=== PATIENT | female | born 1940 | race Two or more races ===

== ENCOUNTER 2021-01-12 08:04 | Outpatient (CLI) | payer OTHER | END 2021-01-12 08:12 | disposition home or self-care (01) | LOC: TOM 08:04 | PROVIDERS: ATTEND Specialist | DX: K57.92 Diverticulitis of intestine, part unspecified, without perforation or abscess without bleeding (principal); Q51.818 Other congenital malformations of uterus ==

== ENCOUNTER 2021-02-03 14:14 | Outpatient (CLI) | payer OTHER | END 2021-02-03 14:35 | disposition home or self-care (01) | LOC: SONOGRAMA 14:14 | PROVIDERS: ATTEND Surgery | DX: Q51.818 Other congenital malformations of uterus (principal); R19.4 Change in bowel habit; R63.4 Abnormal weight loss; D37.4 Neoplasm of uncertain behavior of colon ==

== ENCOUNTER 2021-02-07 06:00 | Day surgery (SDC) | payer OTHER | END 2021-02-07 13:00 | disposition home or self-care (01) | LOC: AMB-ENDOS 06:00 | PROVIDERS: ATTEND Surgery | DX: D12.0 Benign neoplasm of cecum (principal); D12.5 Benign neoplasm of sigmoid colon; Z20.822 Contact with and (suspected) exposure to COVID-19 ==

== ENCOUNTER 2021-03-02 09:50 | Outpatient (CLI) | payer OTHER | END 2021-03-02 09:59 | disposition home or self-care (01) | LOC: RAD 09:50 | PROVIDERS: ATTEND Surgery | DX: R19.4 Change in bowel habit (principal); R63.4 Abnormal weight loss; D37.4 Neoplasm of uncertain behavior of colon; R07.89 Other chest pain ==

== ENCOUNTER 2021-03-06 09:00 | Inpatient (IN) | payer OTHER ==
[~2021-03-06] VITALS: Ht 152.4 cm; Wt 38.1 kg
[2021-03-06] MEDS ORDERED: PROBIOTIC1 EAC2 PO (11:30)
[2021-03-06] MEDS ORDERED: LEVO-T25 MCG PO (11:30)
[2021-03-06] MEDS ORDERED: ACID REDUCER20 M1 PO (11:31)
[2021-03-06] MEDS ORDERED: B12 ACTIVE1000 MCG PO (11:31)
[2021-03-06] MEDS ORDERED: MULTI-VITAMIN1 EACH PO (11:31)
[2021-03-10] MEDS ORDERED: VITAMIN D3125 MC1 (08:24)
[2021-03-10] MEDS ORDERED: STRESS B-COMPL1 EACH (08:24)
[2021-03-10] MEDS ORDERED: PAIN RELIEVER500 M5 (08:24)
[2021-03-10] MEDS ORDERED: REFRESH OPTIVE10 ML (08:24)
[2021-03-14] MEDS ORDERED: ULTRACET PO (08:26)
[2021-03-14] MEDS ORDERED: HYOSCYAMINE0.125 M1 SL (08:26)
[2021-03-14] MEDS ORDERED: PROBIOTIC1 EAC2 PO (08:26)
== END 2021-03-14 10:11 | disposition home or self-care (01) | DRG 331 ==
LOC: ADM 09:00 → EDSTATUS 03-09 09:00 → CIR.AMB 03-09 09:00 → SURH 03-09 09:00 → O/R 03-09 09:54 → SURH 03-09 11:00 → SURG 03-09 17:12
PROVIDERS: ADMIT Surgery; ATTEND Surgery
PROC: 07BC4ZX Excision of Pelvis Lymphatic, Percutaneous Endoscopic Approach, Diagnostic (ICD-10-PCS; 2021-03-09)
PROC: 0DTF4ZZ Resection of Right Large Intestine, Percutaneous Endoscopic Approach (ICD-10-PCS; principal; 2021-03-09 11:00)
DX: D12.2 Benign neoplasm of ascending colon (principal); E83.39 Other disorders of phosphorus metabolism; M81.0 Age-related osteoporosis without current pathological fracture

== ENCOUNTER → 2021-07-20 08:55 | Outpatient (CLI) | payer OTHER ==
[~2021-07-20 08:55] MED LIST: ACID REDUCER20 M1 PO; B12 ACTIVE1000 MCG PO; HYOSCYAMINE0.125 M1 SL; LEVO-T25 MCG PO; MULTI-VITAMIN1 EACH PO; PAIN RELIEVER500 M5; PROBIOTIC1 EAC2 PO; REFRESH OPTIVE10 ML; STRESS B-COMPL1 EACH; ULTRACET PO; VITAMIN D3125 MC1
== END | disposition home or self-care (01) ==
LOC: MAMO-SONO 08:45
PROVIDERS: ATTEND Internal Medicine Geriatric Medicine
DX: R92.1 Mammographic calcification found on diagnostic imaging of breast (principal); N64.4 Mastodynia; N60.11 Diffuse cystic mastopathy of right breast; N60.12 Diffuse cystic mastopathy of left breast; Z12.31 Encounter for screening mammogram for malignant neoplasm of breast

== ENCOUNTER 2021-07-20 09:16 | Outpatient (CLI) | payer OTHER | END 2021-07-20 15:00 | disposition home or self-care (01) | LOC: LAB 09:16 | PROVIDERS: ATTEND Internal Medicine Geriatric Medicine | DX: E03.8 Other specified hypothyroidism (principal); D50.8 Other iron deficiency anemias; E78.2 Mixed hyperlipidemia; I11.9 Hypertensive heart disease without heart failure; E56.8 Deficiency of other vitamins; N39.0 Urinary tract infection, site not specified; Z12.11 Encounter for screening for malignant neoplasm of colon; R19.5 Other fecal abnormalities; E55.9 Vitamin D deficiency, unspecified; N19 Unspecified kidney failure; E11.9 Type 2 diabetes mellitus without complications; R80.8 Other proteinuria; I10 Essential (primary) hypertension ==

== ENCOUNTER 2021-08-03 08:08 | Outpatient (CLI) | payer OTHER | END 2021-08-03 08:10 | disposition home or self-care (01) | LOC: PPH VACUNA 08:08 | PROVIDERS: ATTEND Emergency Medicine Pediatric Emergency Medicine | DX: Z23 Encounter for immunization (principal) ==

== ENCOUNTER 2021-08-08 12:47 | Outpatient (CLI) | payer OTHER | END 2021-08-08 13:00 | disposition home or self-care (01) | LOC: NUCLEAR 12:47 | PROVIDERS: ATTEND Internal Medicine Geriatric Medicine | DX: M81.0 Age-related osteoporosis without current pathological fracture (principal); M15.0 Primary generalized (osteo)arthritis ==

== ENCOUNTER 2022-01-03 13:50 | Outpatient (CLI) | payer OTHER | END 2022-01-03 14:06 | disposition home or self-care (01) | LOC: SONOGRAMA 13:50 | PROVIDERS: ATTEND Obstetrics & Gynecology | DX: R10.2 Pelvic and perineal pain (principal); D25.9 Leiomyoma of uterus, unspecified; N84.1 Polyp of cervix uteri ==

== ENCOUNTER 2022-10-09 10:58 | Outpatient (CLI) | payer OTHER | END 2022-10-09 11:03 | disposition home or self-care (01) | LOC: EDBD 10:58 → RAD 10:58 | DX: R00.1 Bradycardia, unspecified (principal) ==

== ENCOUNTER 2022-10-10 09:38 | Outpatient (CLI) | payer OTHER | END 2022-10-10 13:53 | disposition home or self-care (01) | LOC: LAB 09:38 | PROVIDERS: ATTEND Internal Medicine Cardiovascular Disease | DX: E03.9 Hypothyroidism, unspecified (principal); R00.1 Bradycardia, unspecified ==

== ENCOUNTER 2023-01-04 10:53 | Outpatient (CLI) | payer OTHER | END 2023-01-04 11:05 | disposition home or self-care (01) | LOC: SONOGRAMA 10:53 | PROVIDERS: ATTEND Internal Medicine Cardiovascular Disease | DX: E03.9 Hypothyroidism, unspecified (principal) ==

== ENCOUNTER → 2023-01-04 12:14 | Outpatient (CLI) | payer OTHER | END | disposition home or self-care (01) | LOC: LAB 12:14 | PROVIDERS: ATTEND Internal Medicine Cardiovascular Disease | DX: E03.9 Hypothyroidism, unspecified (principal) ==

== ENCOUNTER 2023-04-24 10:26 | Outpatient (CLI) | payer OTHER | END 2023-04-24 10:49 | disposition home or self-care (01) | LOC: MAMO-SONO 10:26 | PROVIDERS: ATTEND Obstetrics & Gynecology | DX: Z12.31 Encounter for screening mammogram for malignant neoplasm of breast (principal); N63.0 Unspecified lump in unspecified breast; N64.4 Mastodynia ==

== ENCOUNTER → 2024-11-26 14:08 | Outpatient (CLI) | payer OTHER ==
[2024-11-26 15:42] LABS: FERRITIN 61.4 NG/ML (8-252)
[2024-11-26 18:40] LABS: FOLIC ACID > 20.00 ng/ml (4.78-20)
[2024-11-27 08:51] LABS: PLATELET ESTIMATE NORMAL (NORMAL)
== END | disposition home or self-care (01) ==
LOC: LAB 14:08
PROVIDERS: ATTEND Internal Medicine Geriatric Medicine
DX: D64.9 Anemia, unspecified (principal); E53.8 Deficiency of other specified B group vitamins

== ENCOUNTER 2025-03-26 09:34 | Outpatient (CLI) | payer OTHER ==
[2025-03-26 10:36] LABS: HEMATOCRIT 34.7 % (36.0-45.00); HEMOGLOBIN 11.7 g/dL (12.0-15.00); MEAN CORPUSCULAR HEMOGLOBIN 32.4 pg (27.00-32.0); MEAN CORPUSCULAR HGB CONC 33.7 g/dl (32.0-36.0); PLATELET COUNT 201 K/uL (150-450); RED BLOOD COUNT 3.61 M/uL (4.00-6.00); RED CELL DISTRIBUTION WIDTH 14.2 % (11.5-14.5)
[2025-03-26 10:48] LABS: URINE APPEARANCE Clear; URINE BILIRRUBIN Negative (NEGATIVE); URINE BLOOD Negative; URINE COLOR Yellow; URINE GLUCOSE Negative (NEGATIVE); URINE KETONE Negative (NEGATIVE); URINE LEUKOCYTE Trace; URINE NITRATE Negative; URINE PROTEIN Negative (NEGATIVE); URINE UROBILINOGEN 0.2 E.U./dl
[2025-03-26 10:52] LABS: URINE BACTERIA 6.1 uL (0.0-1933); URINE EPITHELIAL CELLS 5.2 uL (0.0-38.8); URINE WBC 20.4 uL (0.0-23.2)
[2025-03-26 11:03] LABS: URINE CAST 0.14 uL (0.0-1.40); URINE RBC 0.8 uL (0.0-20.8)
[2025-03-26 12:07] LABS: ALBUMIN 3.8 gm/dL (3.4-5.0); BILIRUBIN TOTAL 0.86 mg/dL (0.3-1.2); CALCIUM 9.3 mg/dL (8.5-10.1); CREATININE SERUM 0.54 mg/dL (0.55-1.02); GFR 107.04; GLOBULINA 2.7 G/DL (2.4-3.5); POTASSIUM 4.27 mEq/L (3.5-5.1); TOTAL PROTEIN 6.5 gm/dL (6.4-8.2); TSH 1.27 uIU/mL (0.358-3.74)
== END 2025-03-26 10:37 | disposition home or self-care (01) ==
LOC: LAB 09:34
PROVIDERS: ATTEND Internal Medicine Geriatric Medicine
DX: D50.8 Other iron deficiency anemias (principal); E03.9 Hypothyroidism, unspecified; E78.2 Mixed hyperlipidemia; I11.9 Hypertensive heart disease without heart failure; E56.8 Deficiency of other vitamins; N39.0 Urinary tract infection, site not specified; Z12.11 Encounter for screening for malignant neoplasm of colon; R19.5 Other fecal abnormalities; E55.9 Vitamin D deficiency, unspecified; N19 Unspecified kidney failure; E11.9 Type 2 diabetes mellitus without complications

== ENCOUNTER → 2025-08-23 10:11 | Outpatient (CLI) | payer OTHER | END | disposition home or self-care (01) | LOC: NUCLEAR 08-11 10:00 | PROVIDERS: ATTEND Internal Medicine Rheumatology | DX: M81.0 Age-related osteoporosis without current pathological fracture (principal) ==

== ENCOUNTER 2025-09-17 10:07 | Outpatient (CLI) | payer OTHER ==
[2025-09-17 11:12] LABS: BASO % 0.6 % (0.1-1.2); EOS # 0.09 (0.04-0.54); EOS % 1.8 % (0.7-7.0); LYMPH # 1.65 (1.18-3.74); LYMPH % 33.9 % (19.3-53.1); MEAN PLATELET VOLUME 10.20 fl (9.4-12.4); MONO # 0.40 (0.24-0.82); MONO % 8.2 % (4.7-12.5); NEUT # 2.69 (1.56-6.13); NEUT % 55.3 % (34.0-71.1); RED CELL DISTRIBUTION WIDTH 13.7 % (11.6-14.4)
[2025-09-17 12:30] LABS: URINE APPEARANCE Clear; URINE BILIRRUBIN Negative (NEGATIVE); URINE BLOOD Negative; URINE COLOR Yellow; URINE GLUCOSE Negative (NEGATIVE); URINE KETONE Negative (NEGATIVE); URINE LEUKOCYTE Trace; URINE NITRATE Negative; URINE PROTEIN Negative (NEGATIVE); URINE UROBILINOGEN 0.2 E.U./dl
[2025-09-17 12:33] LABS: URINE BACTERIA 9.5 uL (0.0-1933); URINE EPITHELIAL CELLS 5.0 uL (0.0-38.8); URINE WBC 24.6 uL (0.0-23.2)
[2025-09-17 12:47] LABS: ALT/SGPT 25.0 U/L (12-78); AST/SGOT 16.0 U/L (15-37); BILIRUBIN TOTAL 1.62 mg/dL (0.3-1.2); BUN CREA RATIO 20.0 (7.0-25.0); CHOL HDL RATIO 1.7 (0-5.0); CREATININE SERUM 0.6 mg/dL (0.55-1.02); GFR 94.56; GLOBULINA 2.4 G/DL (2.4-3.5); GLUCOSE FASTING 83.0 mg/dL (65-100); HDL 109.0 mg/dl (40-60); LDL 58.0 mg/dl (0-130); OSMOLALITY SERUM 284.0 MOSM/KG (275-295); TSH 1.44 uIU/mL (0.358-3.74); VLDL 12.0 (0-39)
[2025-09-17 12:47] LABS: URINE CAST 0.00 uL (0.0-1.40); URINE RBC 1.3 uL (0.0-20.8)
== END 2025-09-17 10:10 | disposition home or self-care (01) ==
LOC: LAB 10:07
PROVIDERS: ATTEND Internal Medicine Geriatric Medicine
DX: D50.9 Iron deficiency anemia, unspecified (principal); E03.9 Hypothyroidism, unspecified; E78.2 Mixed hyperlipidemia; I11.9 Hypertensive heart disease without heart failure; E56.8 Deficiency of other vitamins; N39.0 Urinary tract infection, site not specified; Z12.11 Encounter for screening for malignant neoplasm of colon; R19.5 Other fecal abnormalities; E55.9 Vitamin D deficiency, unspecified; N19 Unspecified kidney failure; E11.9 Type 2 diabetes mellitus without complications; R80.9 Proteinuria, unspecified; C18.9 Malignant neoplasm of colon, unspecified; E53.8 Deficiency of other specified B group vitamins; I25.10 Atherosclerotic heart disease of native coronary artery without angina pectoris; D68.9 Coagulation defect, unspecified